=== PATIENT | female | born 1980 | race Caucasian/White ===

== ENCOUNTER 2019-04-14 09:20 | Observation (INO) ==
--- NOTE | 2019-04-14 09:30 | Emergency Department Note ---
Disposition Clinical Impression: Ectopic of ovary Qualifiers: Intrauterine status: without intrauterine Laterality: right Qualified Code(s): O00.201 - Right ovarian without intrauterine Disposition: Admitted As Inpatient Time of Disposition: 11:27 General Adult HPI - General Stated complaint: ECTOPIC Time Seen by Provider: 04/14/19 09:27 Source: patient Mode of arrival: ambulatory Limitations: no limitations Nursing Notes Reviewed: Yes Vital Signs Reviewed: Yes - History of Present Illness HPI Narrative: 38 year old female presents for ectopic . Patient stated she found 4 weeks ago. She started her vagina bleeding 2 days ago. She noticed the bleeding got worse since yesterday associate with lower abdominal pain. She visited [facility] this morning. She had an ultrasound there which noted right ovary ectopic . Patient denied dizziness. She's last period was in December. Onset (ago): day(s) (2) - Related Data Home Medications Medication Instructions Recorded Confirmed Melatonin 5 mg Tablet 10 mg PO HS 04/14/19 04/14/19 Caplet 1 tab PO DAILY 04/14/19 04/14/19 Tylenol 1,000 PO Q6H PRN 04/14/19 Zofran 4 mg PO Q4H PRN 04/14/19 04/14/19 Allergies Allergy/AdvReac Type Severity Reaction Status Date / Time aripiprazole [From Abilify] Allergy Hives Verified 04/13/15 15:58 chlorpromazine Allergy Hives Verified 04/13/15 15:58 [From Thorazine] clozapine [From Clozaril] Allergy Hives Verified 04/13/15 15:58 Penicillins Allergy Hives Verified 04/13/15 15:58 Constitutional: Denies: fever, chills Eyes: Denies: eye pain ENT ED: Denies: ear pain Cardiovascular: Denies: chest pain Respiratory: Denies: cough Gastrointestinal: Reports: abdominal pain. Denies: nausea, vomiting Genitourinary: Denies: urgency Musculoskeletal: Denies: back pain Integumentary: Denies: rash Neurological: Denies: headache Psychiatric: Denies: anxiety Endocrine: Denies: fatigue Hematological/Lymphatic: Denies: easy bleeding Allergic/Immunologic: Denies: facial swelling Past Medical History - Past Medical History Medical history: Reports: diabetes, hyperlipidemia, hypertension Surgical history: Reports: , cholecystectomy, other Psychiatric history: Reports: anxiety, depression BOOM BOSS history: Reports: non-contributory - Social History Smoking Status: Current every day smoker Smokeless Tobacco Status: No Alcohol use: Reports: none Drug use: Reports: none Physical Exam - General Limitations: no limitations General appearance: alert - Head Head exam: atraumatic - Eye Eye exam: Present: normal appearance - ENT ENT exam: normal exam - Neck Neck exam: Present: normal inspection - Chest Chest inspection: Present: normal inspection - Respiratory Respiratory exam: Present: normal lung sounds bilaterally - Cardiovascular Cardiovascular exam: Present: regular rate - Abdominal Exam Abdominal exam: Present: soft, tenderness Abdominal tenderness: Present: RLQ - Extremities Exam Extremities exam: Present: normal inspection, full ROM. Absent: tenderness - Back Exam Back exam: Present: normal inspection, full ROM. Absent: tenderness - Neurological Exam Neurological exam: Present: alert, oriented X3 - Psychiatric Psychiatric exam: Present: normal affect, normal mood - Skin Skin exam: Present: warm, intact Course Vital Signs Temperature 98.2 F 04/14/19 09:31 Pulse Rate 82 04/14/19 09:31 Respiratory Rate 15 04/14/19 09:31 Blood Pressure 131/85 04/14/19 09:31 O2 Sat by Pulse Oximetry 96 04/14/19 09:31 Temperature 98.4 F 04/14/19 13:02 Pulse Rate 63 04/14/19 13:02 Respiratory Rate 20 04/14/19 13:02 Blood Pressure 116/64 04/14/19 13:02 O2 Sat by Pulse Oximetry 94 04/14/19 13:02 Oxygen Delivery Oxygen Delivery Room Air Medical Decision Making - [facility] Narrative Medical decision making narrative: 38 year old female presents with lower abdominal pain and a vagina bleeding. Patient found being 4 weeks ago. She started vagina bleeding 2 days ago. Reported worsening vagina bleeding and lower abdominal pain this morning. Physical exam abdomen soft, right lower quadrant tender to palpation. Patient had ultrasound in [facility] which indicated right ovary ectopic . Patient's vitals are stable. Hemoglobin normal. Dr. Bell came to ER and saw the patient. He decided to admit patient to OR. - Lab Data Lab results reviewed: Yes I reviewed the patient's lab results. Result diagrams: 04/14/19 09:40 04/14/19 09:40 Lab Results 04/14/19 04/14/19 04/14/19 Range/Units 09:30 09:40 09:40 WBC 13.6 H (4.3-11.1) K/mcL RBC 4.23 (3.82-4.97) M/mcL Hgb 12.6 (11.5-15.4) g/dL Hct 38.0 (35.3-44.9) % MCV 89.8 (83.0-100.0) fL MCH 29.8 (28.0-33.3) pg MCHC 33.2 (31.6-35.5) g/dL RDW 14.4 (11.5-14.5) % Plt Count 202 (140-400) K/mcL MPV 10.6 (9.4-12.4) fL Immature Gran % 0.4 (0-4) % Seg Neutrophils % 65.1 % Lymphocytes % 25.3 % Monocytes % 7.5 % Eosinophils % 1.3 % Basophils % 0.4 % Neutrophils # 8.8 (1.6-8.9) K/mcL Lymphocytes # 3.4 (0.6-4.6) K/mcL Monocytes # 1.0 (0.0-1.3) K/mcL Eosinophils # 0.2 (0.0-0.6) K/mcL Basophils # 0.1 (0.0-0.2) K/mcL Sodium 137 (136-145) mEq/L Potassium 4.0 (3.5-5.1) mEq/L Chloride 112 H (98-107) mEq/L Carbon Dioxide 18 L (23-29) mEq/L BUN 6 (6-20) mg/dL Creatinine 0.44 L (0.60-1.20) mg/dL Est GFR ( Amer) > 60 (> 60) Est GFR (Non-Af Amer) > 60 (> 60) BUN/Creatinine Ratio 14 (6-26) Glucose 189 H (70-105) mg/dL Calculated Osmolality 287 (280-300) Calcium 8.5 L (8.6-10.3) mg/dL Total Bilirubin 0.3 (0.3-1.0) mg/dL AST 8 L (13-39) Units/L ALT 14 (7-52) Units/L Alkaline Phosphatase 88 (34-104) Units/L Serum Total Protein 5.7 L (6.4-8.9) g/dL Albumin 3.6 (3.5-5.7) g/dL Globulin 2.1 L (2.4-3.5) g/dL Albumin/Globulin Ratio 1.7 (1.1-2.2) Urine Color Yellow (Yellow) Urine Clarity Clear (Clear) Urine pH 6.0 (5.0-8.0) pH Units Ur Specific [place] 1.018 (1.010-1.025) Urine Protein Negative (Neg-Trace) mg/dL Urine Glucose (UA) >=1000 H (Normal) mg/dL Urine Ketones Negative (Negative) mg/dL Urine Blood Large H (Negative) Urine Nitrite Negative (Negative) Urine Bilirubin Negative (Negative) Urine Urobilinogen Normal (Normal) mg/dL Ur Leukocyte Esterase Negative (Negative) Urine Microscopic RBC 50-100 H (0-3) per hpf Urine Microscopic WBC 0-3 (0-3) per hpf Ur Squamous Epith Cells Many H (None-Few) per lpf Urine Bacteria None Seen (None-Few) per hpf Hyaline Casts None Seen (None-Few) per lpf Ur Culture Indicated? NO (NO) Blood Type 04/14/19 Range/Units 09:40 WBC (4.3-11.1) K/mcL RBC (3.82-4.97) M/mcL Hgb (11.5-15.4) g/dL Hct (35.3-44.9) % MCV (83.0-100.0) fL MCH (28.0-33.3) pg MCHC (31.6-35.5) g/dL RDW (11.5-14.5) % Plt Count (140-400) K/mcL MPV (9.4-12.4) fL Immature Gran % (0-4) % Seg Neutrophils % % Lymphocytes % % Monocytes % % Eosinophils % % Basophils % % Neutrophils # (1.6-8.9) K/mcL Lymphocytes # (0.6-4.6) K/mcL Monocytes # (0.0-1.3) K/mcL Eosinophils # (0.0-0.6) K/mcL Basophils # (0.0-0.2) K/mcL Sodium (136-145) mEq/L Potassium (3.5-5.1) mEq/L Chloride (98-107) mEq/L Carbon Dioxide (23-29) mEq/L BUN (6-20) mg/dL Creatinine (0.60-1.20) mg/dL Est GFR ( Amer) (> 60) Est GFR (Non-Af Amer) (> 60) BUN/Creatinine Ratio (6-26) Glucose (70-105) mg/dL Calculated Osmolality (280-300) Calcium (8.6-10.3) mg/dL Total Bilirubin (0.3-1.0) mg/dL AST (13-39) Units/L ALT (7-52) Units/L Alkaline Phosphatase (34-104) Units/L Serum Total Protein (6.4-8.9) g/dL Albumin (3.5-5.7) g/dL Globulin (2.4-3.5) g/dL Albumin/Globulin Ratio (1.1-2.2) Urine Color (Yellow) Urine Clarity (Clear) Urine pH (5.0-8.0) pH Units Ur Specific [place] (1.010-1.025) Urine Protein (Neg-Trace) mg/dL Urine Glucose (UA) (Normal) mg/dL Urine Ketones (Negative) mg/dL Urine Blood (Negative) Urine Nitrite (Negative) Urine Bilirubin (Negative) Urine Urobilinogen (Normal) mg/dL Ur Leukocyte Esterase (Negative) Urine Microscopic RBC (0-3) per hpf Urine Microscopic WBC (0-3) per hpf Ur Squamous Epith Cells (None-Few) per lpf Urine Bacteria (None-Few) per hpf Hyaline Casts (None-Few) per lpf Ur Culture Indicated? (NO) Blood Type A POSITIVE Attestation Statement - Attestation Attestation: For this encounter, I have reviewed the PAIN MANAGEMENT NURSE or PA documentation, treatment plan, and medical decision making; and I have had face to face time with this patient.
[2019-04-14 09:46] LABS: Bilirubin,Urine Negative (Negative); Blood,Urine Large (Negative); Clarity,Urine Clear (Clear); Color,Urine Yellow (Yellow); Glucose,Urine (UA) >=1000 mg/dL (Normal); Ketones,Urine Negative (Negative); Leukocyte Esterase,Urine Negative (Negative); Nitrite,Urine Negative (Negative); Protein,Urine Negative (Neg-Trace); Specific Gravity,Urine 1.018 (1.010-1.025); Urobilinogen,Urine Normal (Normal)
[2019-04-14 09:48] LABS: Bacteria,Urine None Seen per hpf (None-Few); Hyaline Casts,Urine None Seen per lpf (None-Few); RBC,Urine 50-100 per hpf (0-3); Squamous Epithelial Cell,Urine Many per lpf (None-Few); WBC,Urine 0-3 per hpf (0-3)
[2019-04-14 09:57] LABS: Basophils # 0.1 K/mcL (0.0-0.2); Basophils % 0.4 %; Eosinophils # 0.2 K/mcL (0.0-0.6); Eosinophils % 1.3 %; Hemoglobin 12.6 g/dL (11.5-15.4); Immature Granulocytes % 0.4 % (0-4); Lymphocytes # 3.4 K/mcL (0.6-4.6); Lymphocytes % 25.3 %; Mean Corpuscular HGB Conc 33.2 g/dL (31.6-35.5); Mean Corpuscular Hemoglobin 29.8 pg (28.0-33.3); Mean Corpuscular Volume 89.8 fL (83.0-100.0); Mean Platelet Volume 10.6 fL (9.4-12.4); Monocytes % 7.5 %; Neutrophils # 8.8 K/mcL (1.6-8.9); Platelet Count 202 K/mcL (140-400); Red Blood Count 4.23 M/mcL (3.82-4.97); Red Cell Distribution Width 14.4 % (11.5-14.5); Segmented Neutrophils % 65.1 %; White Blood Count 13.6 K/mcL (4.3-11.1)
[2019-04-14 10:15] LABS: Alanine Aminotransferase 14 Units/L (7-52); Albumin 3.6 g/dL (3.5-5.7); Albumin/Globulin Ratio 1.7 (1.1-2.2); Alkaline Phosphatase 88 Units/L (34-104); Aspartate Amino Transferase 8 Units/L (13-39); BUN/Creatinine Ratio 14 (6-26); Bilirubin,Total 0.3 mg/dL (0.3-1.0); Blood Urea Nitrogen 6 mg/dL (6-20); Calcium 8.5 mg/dL (8.6-10.3); Carbon Dioxide 18 mEq/L (23-29); Chloride 112 mEq/L (98-107); Globulin 2.1 g/dL (2.4-3.5); Glucose 189 mg/dL (70-105); Osmolality,Calculated 287 (280-300); Sodium 137 mEq/L (136-145); Total Protein 5.7 g/dL (6.4-8.9); eGFR For African Americans > 60 (> 60); eGFR For Non-African Americans > 60 (> 60)
--- NOTE | 2019-04-14 11:30 | Emergency Department Note ---
Disposition Clinical Impression: Ectopic of ovary Qualifiers: Intrauterine status: without intrauterine Laterality: right Qualified Code(s): O00.201 - Right ovarian without intrauterine Disposition: Admitted As Inpatient Referrals: Chris Prado MD [Primary Care Provider] - Time of Disposition: 11:32 General Adult HPI - General Chief complaint: ED Vaginal Bleeding Stated complaint: ECTOPIC Time Seen by Provider: 04/14/19 09:27 Source: patient Mode of arrival: ambulatory Limitations: no limitations - History of Present Illness Pain Scale: 8 - Related Data Allergies Allergy/AdvReac Type Severity Reaction Status Date / Time aripiprazole [From Abilify] Allergy Hives Verified 04/13/15 15:58 chlorpromazine Allergy Hives Verified 04/13/15 15:58 [From Thorazine] clozapine [From Clozaril] Allergy Hives Verified 04/13/15 15:58 Penicillins Allergy Hives Verified 04/13/15 15:58 Constitutional: Denies: fever, chills Eyes: Denies: eye pain ENT ED: Denies: ear pain Cardiovascular: Denies: chest pain Respiratory: Denies: cough Gastrointestinal: Reports: abdominal pain. Denies: nausea, vomiting Genitourinary: Denies: urgency Musculoskeletal: Denies: back pain Integumentary: Denies: rash Neurological: Denies: headache Psychiatric: Denies: anxiety Endocrine: Denies: fatigue Hematological/Lymphatic: Denies: easy bleeding Allergic/Immunologic: Denies: facial swelling Past Medical History - Past Medical History Medical history: Reports: diabetes, hyperlipidemia, hypertension Surgical history: Reports: , cholecystectomy, other Psychiatric history: Reports: anxiety, depression FISH PROCESSOR history: Reports: non-contributory : 3 Para: 1 Ab: 1 - Social History Smoking Status: Current every day smoker Smokeless Tobacco Status: No Alcohol use: Reports: none Drug use: Reports: none Physical Exam - General Limitations: no limitations General appearance: alert Course Vital Signs Temperature 98.2 F 04/14/19 09:31 Pulse Rate 82 04/14/19 09:31 Respiratory Rate 15 04/14/19 09:31 Blood Pressure 131/85 04/14/19 09:31 O2 Sat by Pulse Oximetry 96 04/14/19 09:31 Temperature 98.2 F 04/14/19 09:31 Pulse Rate 79 04/14/19 11:20 Respiratory Rate 18 04/14/19 11:20 Blood Pressure 121/99 04/14/19 11:20 O2 Sat by Pulse Oximetry 96 04/14/19 11:20 Oxygen Delivery Oxygen Delivery Room Air Medical Decision Making - Lab Data Result diagrams: 04/14/19 09:40 04/14/19 09:40 Lab Results 04/14/19 04/14/19 04/14/19 Range/Units 09:30 09:40 09:40 WBC 13.6 H (4.3-11.1) K/mcL RBC 4.23 (3.82-4.97) M/mcL Hgb 12.6 (11.5-15.4) g/dL Hct 38.0 (35.3-44.9) % MCV 89.8 (83.0-100.0) fL MCH 29.8 (28.0-33.3) pg MCHC 33.2 (31.6-35.5) g/dL RDW 14.4 (11.5-14.5) % Plt Count 202 (140-400) K/mcL MPV 10.6 (9.4-12.4) fL Immature Gran % 0.4 (0-4) % Seg Neutrophils % 65.1 % Lymphocytes % 25.3 % Monocytes % 7.5 % Eosinophils % 1.3 % Basophils % 0.4 % Neutrophils # 8.8 (1.6-8.9) K/mcL Lymphocytes # 3.4 (0.6-4.6) K/mcL Monocytes # 1.0 (0.0-1.3) K/mcL Eosinophils # 0.2 (0.0-0.6) K/mcL Basophils # 0.1 (0.0-0.2) K/mcL Sodium 137 (136-145) mEq/L Potassium 4.0 (3.5-5.1) mEq/L Chloride 112 H (98-107) mEq/L Carbon Dioxide 18 L (23-29) mEq/L BUN 6 (6-20) mg/dL Creatinine 0.44 L (0.60-1.20) mg/dL Est GFR ( Amer) > 60 (> 60) Est GFR (Non-Af Amer) > 60 (> 60) BUN/Creatinine Ratio 14 (6-26) Glucose 189 H (70-105) mg/dL Calculated Osmolality 287 (280-300) Calcium 8.5 L (8.6-10.3) mg/dL Total Bilirubin 0.3 (0.3-1.0) mg/dL AST 8 L (13-39) Units/L ALT 14 (7-52) Units/L Alkaline Phosphatase 88 (34-104) Units/L Serum Total Protein 5.7 L (6.4-8.9) g/dL Albumin 3.6 (3.5-5.7) g/dL Globulin 2.1 L (2.4-3.5) g/dL Albumin/Globulin Ratio 1.7 (1.1-2.2) Urine Color Yellow (Yellow) Urine Clarity Clear (Clear) Urine pH 6.0 (5.0-8.0) pH Units Ur Specific [place] 1.018 (1.010-1.025) Urine Protein Negative (Neg-Trace) mg/dL Urine Glucose (UA) >=1000 H (Normal) mg/dL Urine Ketones Negative (Negative) mg/dL Urine Blood Large H (Negative) Urine Nitrite Negative (Negative) Urine Bilirubin Negative (Negative) Urine Urobilinogen Normal (Normal) mg/dL Ur Leukocyte Esterase Negative (Negative) Urine Microscopic RBC 50-100 H (0-3) per hpf Urine Microscopic WBC 0-3 (0-3) per hpf Ur Squamous Epith Cells Many H (None-Few) per lpf Urine Bacteria None Seen (None-Few) per hpf Hyaline Casts None Seen (None-Few) per lpf Ur Culture Indicated? NO (NO) Blood Type 04/14/19 Range/Units 09:40 WBC (4.3-11.1) K/mcL RBC (3.82-4.97) M/mcL Hgb (11.5-15.4) g/dL Hct (35.3-44.9) % MCV (83.0-100.0) fL MCH (28.0-33.3) pg MCHC (31.6-35.5) g/dL RDW (11.5-14.5) % Plt Count (140-400) K/mcL MPV (9.4-12.4) fL Immature Gran % (0-4) % Seg Neutrophils % % Lymphocytes % % Monocytes % % Eosinophils % % Basophils % % Neutrophils # (1.6-8.9) K/mcL Lymphocytes # (0.6-4.6) K/mcL Monocytes # (0.0-1.3) K/mcL Eosinophils # (0.0-0.6) K/mcL Basophils # (0.0-0.2) K/mcL Sodium (136-145) mEq/L Potassium (3.5-5.1) mEq/L Chloride (98-107) mEq/L Carbon Dioxide (23-29) mEq/L BUN (6-20) mg/dL Creatinine (0.60-1.20) mg/dL Est GFR ( Amer) (> 60) Est GFR (Non-Af Amer) (> 60) BUN/Creatinine Ratio (6-26) Glucose (70-105) mg/dL Calculated Osmolality (280-300) Calcium (8.6-10.3) mg/dL Total Bilirubin (0.3-1.0) mg/dL AST (13-39) Units/L ALT (7-52) Units/L Alkaline Phosphatase (34-104) Units/L Serum Total Protein (6.4-8.9) g/dL Albumin (3.5-5.7) g/dL Globulin (2.4-3.5) g/dL Albumin/Globulin Ratio (1.1-2.2) Urine Color (Yellow) Urine Clarity (Clear) Urine pH (5.0-8.0) pH Units Ur Specific [place] (1.010-1.025) Urine Protein (Neg-Trace) mg/dL Urine Glucose (UA) (Normal) mg/dL Urine Ketones (Negative) mg/dL Urine Blood (Negative) Urine Nitrite (Negative) Urine Bilirubin (Negative) Urine Urobilinogen (Normal) mg/dL Ur Leukocyte Esterase (Negative) Urine Microscopic RBC (0-3) per hpf Urine Microscopic WBC (0-3) per hpf Ur Squamous Epith Cells (None-Few) per lpf Urine Bacteria (None-Few) per hpf Hyaline Casts (None-Few) per lpf Ur Culture Indicated? (NO) Blood Type A POSITIVE Attestation Statement - Attestation Attestation: For this encounter, I have reviewed the SEMICONDUCTOR LAB TECHNICIAN or PA documentation, treatment plan, and medical decision making; and I have had face to face time with this patient. This is a 38-year-old female who presents from outside hospital due to ultraso und concern for ectopic . The patient has been experiencing right lower quadrant abdominal pain. Per her report she had a clot around 7500. She had an ultrasound there was concern for ectopic . Case was originally seen by the mid-level provider, Tyler Keyes who discussed with FISH PROCESSOR here. I evaluated the patient [id number]. She is still having some mild right lower quadrant abdominal pain. FISH PROCESSOR is present in the room evaluating her for surgical management today. General: Alert, no acute distress HENT: Normocephalic, Atraumatic Neck: No JVD Cardiovascular: Regular rate and rhythm. No appreciable murmurs Respiratory: Lungs CTAB. No wheezing/rhonchi Abdominal: Soft, patient has mild right lower quadrant tenderness. No guarding or rigidity. No peritoneal features. Extremities: No peripheral edema Neuro: Alert, Mentating appropriately, No focal deficits Skin: Warm, Dry Plan: Ultrasound was performed at outside facility. Her report she has a Quant of 7500. FISH PROCESSOR has evaluated the patient and deemed her appropriate for surgical management was able take her to the operating room today. The patient is admitted to the FISH PROCESSOR service.
[2019-04-14] MEDS ORDERED: *HR* HYDROmorphone (PF) 1 MG/ML SYRINGE IVP PRN ×2 (11:33→15:44)
--- NOTE | 2019-04-14 11:39 | OB/GYN History & Physical ---
Date of Encounter: 04/14/19 Time of Encounter: 11:35 Assessment and Plan (1) Ectopic without intrauterine Current visit: Yes Status: Acute 38-year-old 3 para 1 female presents approximately 8 weeks gestation with a quantitative beta hCG is 7500 with acute pelvic pain and surgical abdomen with guarding. Ultrasound shows no viable intrauterine and this showed thickening left fallopian tube as well as bilateral ovarian cyst and moderate free fluid. I did advise patient to the quantitative hCG is 7500 with defecation seen intrauterine . She not had significant bleeding to havw had a spontaneous miscarriage. I discussed with patient options and given her symptomatology and free fluid she is not a candidate for medical or expectant management of this ectopic . I have discussed surgical o ptions as well as surgical risks and she is amenable to proceeding with laparoscopic salpingectomy. I suspect the is most likely on the left side however I have consented for unilateral salpingectomy possible bilateral salpingectomy. Her questions have been answered and she has signed appropriate consent. Will admit to 1 NE. preoperatively with plan to proceed to surgery now or becomes available. Qualifiers: Laterality: unspecified laterality Qualified Code(s): O00.109 - Unspecified tubal without intrauterine (2) Ectopic , tubal Current visit: Yes Status: Acute Qualifiers: Intrauterine status: without intrauterine Laterality: unspecified laterality Qualified Code(s): O00.109 - Unspecified tubal without intrauterine History of Present Illness Chief complaint: ectopic HPI: Ms. Irvin is a 38 year old female [id number] presents in transfer from [facility] with suspected ectopic . Reports last menstrual period was approximately 8 weeks ago and she had a positive test about 4 weeks ago. She started having spotting 3 days ago and then awoke at 3 AM with doubling over pain so presented to the emergency room. At the Emergency room she is found to be in significant pain with a quantitative beta hCG of 7500. She did have pelvic ultrasound and I spoke directly with the radiologist felt he states she has no obvious intrauterine and no gestational or yolk sac with an endometrial stripe of 12 mm. Does have a 3 cm cyst on the right ovary with simple in nature and 2 smaller complex cyst on her left ovary and possible thickening within the left fallopian tube. There is a moderate amount of free fluid. Because of these findings she was transferred to [facility] for further evaluation and management. Upon arrival here her vital signs are stable she does appear uncomfortable. Hemoglobin is 12.2. Past Med Surg Social Fam HX - Past Medical History Source: patient Medical history: diabetes, hyperlipidemia, hypertension Additional medical history: hx of drug abuse Psychiatric history: anxiety, depression - Past Surgical History Surgical History: , cholecystectomy, other Additional surgical history: TBI - Social History Smoking Status: Current every day smoker Smokeless Tobacco Status: No Alcohol use: none Drug use: none Obstetrical History - Pregnancies : 3 Para: 1 Ab's: 1 Livin - History/Complications History/Complications: Has history of 1 prior spontaneous miscarriage at 9 weeks and now an ectopic . Medications and Allergies Allergy/AdvReac Type Severity Reaction Status Date / Time aripiprazole [From Abilify] Allergy Hives Verified 04/13/15 15:58 chlorpromazine Allergy Hives Verified 04/13/15 15:58 [From Thorazine] clozapine [From Clozaril] Allergy Hives Verified 04/13/15 15:58 Penicillins Allergy Hives Verified 04/13/15 15:58 Exam - Vital Signs Vital signs: Initial Vital Signs Temp Pulse Resp BP Pulse Ox 98.2 F 82 15 131/85 96 04/14/19 09:31 04/14/19 09:31 04/14/19 09:31 04/14/19 09:31 04/14/19 09:31 - Constitutional Constitutional: well developed, well nourished - HEENT HEENT: EOMI, PERRL - Neck Neck exam: full ROM - Lungs Respiratory exam: CTAB - Cardiovascular Cardiovascular exam: RRR - Abdomen Abdomen: Present: guarding noted Abdomen detail: right lower quadrant: tenderness, left upper quadrant: tenderness - Extremities Extremities exam: full ROM - Uterus Uterus exam: Present: tender - Comments Comments: Minimal bleeding noted Results Result Diagrams: 04/14/19 09:40 04/14/19 09:40 Abnormal lab results WBC 13.6 K/mcL (4.3-11.1) H 04/14/19 09:40 Chloride 112 mEq/L (98-107) H 04/14/19 09:40 Carbon Dioxide 18 mEq/L (23-29) L 04/14/19 09:40 Creatinine 0.44 mg/dL (0.60-1.20) L 04/14/19 09:40 Glucose 189 mg/dL (70-105) H 04/14/19 09:40 Calcium 8.5 mg/dL (8.6-10.3) L 04/14/19 09:40 AST 8 Units/L (13-39) L 04/14/19 09:40 Serum Total Protein 5.7 g/dL (6.4-8.9) L 04/14/19 09:40 Globulin 2.1 g/dL (2.4-3.5) L 04/14/19 09:40 Urine Glucose (UA) >=1000 mg/dL (Normal) H 04/14/19 09:30 Urine Blood Large (Negative) H 04/14/19 09:30 Urine Microscopic RBC 50-100 per hpf (0-3) H 04/14/19 09:30 Ur Squamous Epith Cells Many per lpf (None-Few) H 04/14/19 09:30 All other labs normal.
--- NOTE | 2019-04-14 15:32 | Anesthesia Evaluation PreOp ---
Date of Encounter: 04/14/19 Time of Encounter: 15:26 - Past History Planned Operation: Ectopic/Laparoscopic Cardiac History: HTN, Hyperlipidemia Pulmonary History: Smoker CAREER SERVICES OFFICER History: Other (TBI @ 4 y/o - no problems since, Anxiety/Depression) Other Medical History: Diabetes Type II Anesthesia History: No Prior Anesthetic Complications, Past Anesthesia (c- section, cholecystectomy) : Yes (Ectopic ) Alcohol Use: none Drug use: none Medications and Allergies Melatonin 5 mg Tablet 10 mg PO HS 04/14/19 [History] Caplet 1 tab PO DAILY 04/14/19 [History] Tylenol 1,000 PO Q6H PRN 04/14/19 [History] Zofran 4 mg PO Q4H PRN 04/14/19 [History] Allergy/AdvReac Type Severity Reaction Status Date / Time aripiprazole [From Abilify] Allergy Hives Verified 04/13/15 15:58 chlorpromazine Allergy Hives Verified 04/13/15 15:58 [From Thorazine] clozapine [From Clozaril] Allergy Hives Verified 04/13/15 15:58 Penicillins Allergy Hives Verified 04/13/15 15:58 - Meds/Allergy Pre-op Review Medications Reviewed: Yes Allergies Reviewed: Yes Beta Blockers on Current Med List: No Anesthesia Results - Labs 04/14/19 09:40 04/14/19 09:40 Laboratory Tests 02/24/18 04/09/19 09:17 15:47 Hemoglobin A1c 8.5 H Beta HCG, Quant 3417 H Anesthesia Exam Vital Signs/O2 Sat, Most Current Temp Pulse Resp BP Pulse Ox 98.4 F 63 20 116/64 94 04/14/19 13:02 04/14/19 13:02 04/14/19 13:02 04/14/19 13:02 04/14/19 13:02 Blood glucose: 189 NPO (# of Hours): > 8 Hrs Pain Scale: 0 Pain Scale Used: Numeric (1 - 10) - HEENT Pupil (Motor): Pupils equal, EOMI Mallampati: I Teeth: Normal - CAREER SERVICES OFFICER LOC: Oriented CAREER SERVICES OFFICER Motor: Normal RUE, Normal LUE, Normal RLE, Normal LLE, Normal Face CAREER SERVICES OFFICER Sensory: Normal: RUE, LUE, RLE, LLE, Face - Cardiac Rhythm: Regular Murmur: None JVD: No Carotid Bruit: No - Pulmonary Breath Sounds: bilateral Clear Respiratory Effort: Symmetrical Anesthesia Assess/Plan ASA Score: 2 Level of consciousness: Cooperative Anesthetic Plan: General Autologous Blood: Yes Monitoring Plan: Standard Monitors Recovery Plan: PACU
[2019-04-14] MEDS ORDERED: Albuterol 2.5 MG/3 ML NEBULIZER IH ONE (15:35)
[2019-04-14] MEDS ORDERED: Albuterol 2.5 MG/3 ML NEBULIZER ONE (15:37)
[2019-04-14] MEDS ORDERED: Ondansetron 4 MG/2 ML VIAL IVP ONE (15:44)
[2019-04-14] MEDS ORDERED: *HR* OxyCODONE Immed Rel 5 MG TABLET PO PRN (15:44)
[2019-04-14] MEDS ORDERED: *HR* Promethazine 25 MG/ML VIAL IVP PRN (15:44)
[2019-04-14] MEDS ORDERED: Bupivacaine/EPI 1:200k 0.25%PF 10 ML VIAL INFILT ONE (15:48)
[2019-04-14] MEDS ORDERED: Dexamethasone 4 MG/ML VIAL ONE (17:06)
[2019-04-14] MEDS ORDERED: *HR* Propofol 200 MG/20 ML VIAL IVP ONE (17:06)
[2019-04-14] MEDS ORDERED: *HR* Succinylcholine 200 MG/10 ML VIAL IVP ONE (17:06)
[2019-04-14] MEDS ORDERED: Lidocaine -MPF 2% 2 ML VIAL ONE (17:06)
[2019-04-14] MEDS ORDERED: Ondansetron 4 MG/2 ML VIAL ONE (17:06)
[2019-04-14] MEDS ORDERED: *HR* Rocuronium Bromide 50 MG/5 ML VIAL ONE ×2 (17:06→19:18)
[2019-04-14] MEDS ORDERED: *HR* FentaNYL (PF) 100 MCG/2 ML VIAL ONE ×2 (17:06)
[2019-04-14] MEDS ORDERED: *HR* Midazolam HCl 2 MG/2 ML VIAL ONE (17:06)
[2019-04-14] MEDS ORDERED: Clindamycin 900 MG/50 ML 900 MG/50 ML IV.SOLN IVPB ONE (17:10)
[2019-04-14] MEDS ORDERED: Neostigmine Methylsulfate 3 MG/3 ML SYRINGE ONE (17:32)
--- NOTE | 2019-04-14 20:37 | Operative Note ---
Date of procedure: 04/14/19 Pre-op diagnosis: Bladder injury Post-op diagnosis: same Procedure: Laparoscopic cystorrhaphy, extensive lysis of pelvic and omental adhesions, cystoscopy Implants: None Complications: None Anesthesia: GETA Surgeon: Zachariah Klein Was there an assistant import manager present: No Estimated blood loss (cc): 20 Specimen: None Condition: stable Disposition: other (Return to the care of Dr. Lobato for completion of her primary surgical procedure) Procedure in Detail: I received an after hours call for urgent intraoperative consultation regarding bladder injury during MARKETING LEAD procedure. I arrived to the operating theater and reviewed the details of the case with the primary surgeon, Dr. Flip Lobato. The patient sustained a bladder injury during low abdominal laparoscopic port placement (a part of routine configuration to address the patient's ruptured ectopic ). The port in question went through the anterior bladder and exited into the field of view through the posterior bladder. As we reviewed the intraoperative anatomy on the monitor, the suspected anterior bladder injury could not be appreciated as it was behind the peritoneum. I scrubbed into the case and performed a cystoscopy. Cystoscopy revealed 2 injuries/perforations of the bladder the largest being at the anterior bladder toward the dome slightly right of midline and the second being immediately posterior. Simultaneous monitors were used for cystoscopy as well as laparoscopy. Laparoscopic view from above revealed bladder irrigant exiting the posterior bladder entry as it was intraperitoneal. The anterior bladder injury was extraperitoneal and could not be seen laparoscopically. Given the size of the bladder injuries a decision was made for laparoscopic sutured repair. I ended cystoscopic portion of procedure and entered the laparoscopic field above after re-sterilizing. The bladder had to be mobilized to reach the largest defect being the anterior bladder injury. The bladder was significantly adhesed to the omentum and anterior abdominal wall. These adhesions fixed the entire anterior surface of the bladder to the anterior abdominal wall much higher then its normal anatomic location. This was a cause for inadvertent trocar injury during placement of a trocar in the normal low abdominal position. As we began mobilizing the bladder it was clear that these adhesions were quite dense and socked in. This required sharp dissection into dense fibrous adhesion fixing the bladder to the omentum, and omentum to the anterior abdominal wall. This extended time procedure by at least 50%. Once the bladder was dropped from the anterior abdominal wall by dissection freeing the midline and right aspect of the bladder, the anterior abdominal bladder injury was identified. Using intracorporeal freehand suturing, the defect was closed with a running 2-0 Vicryl suture. Bladder irrigation was performed and showed no extravasation from this site. Attention was turned to the posterior bladder injury which was at the intraperitoneal site. This was also sewn in a running fashion using intracorporeal freehand suturing by a pure laparoscopic technique. The tight space and utilization of existing MARKETING LEAD port configuration was not ideal for bladder repair, but utilizing the existing MARKETING LEAD port placement minimized the morbidity associated with reconfiguration of port placement for bladder reconstruction. This significantly creased the level difficulty of the case. Intracorporeal freehand suturing via sure laparoscopic technique, in a space with limited mobility required tertiary care referral lev technical expertise. Once both cystotomies had been closed. The bladder was again filled and found to be watertight. Given the watertightness of the repair, drainage was deemed mandatory. At this point I turned the patient's care back over to Dr. Lobato, who was present and assisted for the entire urologic portion of the case. A Saldaña catheter will be left in place for 10-14 days. This ended the urologic portion of the procedure.
[2019-04-14] MEDS ORDERED: Acetaminophen IV 1,000 MG/100 ML INFUS..BTL ONE (20:56)
--- NOTE | 2019-04-14 21:48 | OB/GYN Procedure Note ---
Laparoscopy Procedure - Diagnosis Date of procedure: 04/14/19 Pre-op diagnosis: ectopic Post-op diagnosis: same, pelvic adhesive disease - Procedure Laparoscopy procedure: operative laparoscopy, left ovarian cystotomy(ies), lysis of pelvic adhesions, other (Right salpingectomy, incidental cystotomy with repair by Dr. Klein) Surgeon: Flip Lobato Was there an family practice physician assistant present: Yes Coal Passer: Noemi Luu Anesthesia Type: General Estimated blood loss (cc): 250 Complications: none Specimens: ovarian cyst wall, other (Right fallopian tube with ectopic ) Findings: Dense omental adhesions in between the upper abdomen abdominal wall, to hemorrhagic cyst on left ovary measuring approximately 3 cm in the right ampullary ectopic , adhesions between the bladder and the lower abdominal wall Disposition: PACU Narrative: Patient's 38-year-old female presented emergency room with probable ectopic with quantitative hCG of 7500 lower pelvic pain vaginal bleeding and ultrasound suggestive of ectopic. Discussed with patient options she did desire definitive surgical management she signed appropriate consent. Description procedure: Patient was taken operating room where general anesthesia was administered. She was prepped draped in usual sterile fashion bladder was drained of clear urine. Cervix is visualized and grasped with single-tooth tenaculum. Commodore uterine manipulators placed in the cervix. Scalpel was used to make a 5 mm incision below the umbilicus from a blunt trocar was introduced at difficulty. There were dense omental adhesions I did place a 12 mm trocar in the midline above the previous section incision. This is placed under direct visualization without apparent difficulty. Another 5 mm trochars placed right lower quadrant. I did use monopolar scissors to take down the omental adhesions I did have to place another 5 mm trocar in the left upper quadrant to help with dissection. The left fallopian tube did have 2 adjacent enlarged hemorrhagic ovarian cysts measuring approximately 3 cm. The Cyst swain these were transected and the cyst drained the cyst swain removed. Uterus was normal right ovary was enlarged to have some hemorrhage with partially ruptured in the ampullary ectopic . LigaSure was taken across the cornual section of the right fallopian tube and then across the mesosalpinx. Right fallopian tube and cyst wall were placed in Endo Catch bag and removed. Thorough irrigation was performed hemostasis was ensured. When the Endo Catch bag was removed the young Schuster. I did notice a glistening appearance above the peritoneum at the 12 mm trocar site I did place the laparoscope into the 12 mm trocar site and noted that I had entered a hollow cavity. Saldaña catheter was placed and did show that I had entered the bladder inadvertently during placement of the catheter. Again the abdominal wall did not appear thickened in this area and the been impossible to tell that the bladder was drawn up in this area. I did consult Dr. Zachariah Klein from urology who did recommend he did agree that the bladder was surprisingly high up on the lower abdominal wall. This point Dr. Klein did take over the procedure and did repair the anterior and posterior bladder swain with interrupted sutures laparoscopically. Please see his portion of the dictation to see his part of the surgery. Once the bladder was closed and found to be watertight the pneumoperitoneum was released trochars removed the fascia at the 12 mm site was closed with 0 Vicryl suture skin edges reapproximated with 4-0 Vicryl and skin glue. All sponge counts counts are correct patient was taken recovery in good condition.
[2019-04-14] MEDS ORDERED: Ondansetron 4 MG/2 ML VIAL IVP PRN (21:59)
[2019-04-14] MEDS ORDERED: Ringers Solution, Lactated 1,000 ML IVC SCH (21:59)
[2019-04-14] MEDS ORDERED: Naloxone 0.4 MG/ML INJ IVP PRN (21:59)
[2019-04-14] MEDS: *HR* HYDROcodone/Acet 5/325 mg TABLET PO PRN (22:31)
--- NOTE | 2019-04-14 22:38 | Anesthesia Evaluation Post Op ---
Date of Encounter: 04/14/19 Time of Encounter: 22:33 - Vital Signs Vital Signs: Vital Signs/O2 Sat, Most Current Temp Pulse Resp BP Pulse Ox 98.6 F 85 18 112/66 94 04/14/19 22:00 04/14/19 22:00 04/14/19 22:00 04/14/19 22:00 04/14/19 22:00 - Lungs Lungs: Clear Ascult./Percussion - Airway Airway: Non-obstructed - Cardiovascular Regular Rate - Mental Status Mental Status: Alert & Oriented, Answers Appropriately - Pain Pain Scale used: Numeric (1 - 10) (tolerable) - Nausea Vomiting Nausea Vomiting: Not Present - Hydration Hydration: Ice chips, Saldaña catheter - Discharge PostOp Status: Transfer Patient to floor
[2019-04-14] MEDS ORDERED: *HR* Dextrose 50 % in Water (Syg) 50 ML SYRINGE IVP PRN (22:43)
[2019-04-14] MEDS ORDERED: Dextrose Gel 15 GM/37.5 ML TUBE PO PRN ×2 (22:43)
[2019-04-14] MEDS ORDERED: D5% in Water 1,000 ML IVC PRN (22:43)
[2019-04-14] MEDS ORDERED: Insulin LISPRO 300 UNITS/3 ML VIAL SQ ONE (23:24)
[2019-04-15] MEDS: *HR* HYDROcodone/Acet 5/325 mg TABLET PO PRN ×3 (02:30→13:59)
[2019-04-15 05:49] LABS: Basophils % 0.2 %; Hematocrit 36.4 % (35.3-44.9); Hemoglobin 11.8 g/dL (11.5-15.4); Immature Granulocytes % 0.8 % (0-4); Lymphocytes % 9.7 %; Mean Corpuscular HGB Conc 32.4 g/dL (31.6-35.5); Mean Corpuscular Hemoglobin 30.2 pg (28.0-33.3); Mean Corpuscular Volume 93.1 fL (83.0-100.0); Mean Platelet Volume 10.7 fL (9.4-12.4); Monocytes # 1.3 K/mcL (0.0-1.3); Monocytes % 6.3 %; Neutrophils # 17.5 K/mcL (1.6-8.9); Platelet Count 191 K/mcL (140-400); Red Blood Count 3.91 M/mcL (3.82-4.97); Red Cell Distribution Width 14.6 % (11.5-14.5)
[2019-04-15 05:50] LABS: Lymphocytes # 2.1 K/mcL (0.6-4.6); White Blood Count 21.1 K/mcL (4.3-11.1)
--- NOTE | 2019-04-15 06:55 | Discharge Summary ---
Date of Encounter: 04/15/19 Time of Encounter: 06:56 - Discharge Diagnosis (1) Ectopic without intrauterine Priority: Primary Status: Acute Comments: Doing much better, will likely d/c home today. Qualifiers: Laterality: unspecified laterality Qualified Code(s): O00.109 - Unspecified tubal without intrauterine (2) Ectopic , tubal Priority: Primary Status: Acute Qualifiers: Intrauterine status: without intrauterine Laterality: unspecified laterality Qualified Code(s): O00.109 - Unspecified tubal without intrauterine (3) Cystostomy status Priority: Secondary Status: Acute Comments: Pt with incidental cystostomy repaired by Dr. Klein. Will need prolonged catheter. Dr. Klein has accepted management of catheter removal. - Discharge Medications Prescriptions: New Nitrofurantoin [Macrodantin] 100 mg PO HS #10 capsule HYDROcodone/Acet 5/325 mg [Embudo 5-325 mg] 1 tab PO Q6H PRN 7 Days #20 tablet PRN Reason: Moderate Pain (4-6) No Action Melatonin 5 mg Tablet 10 mg PO HS Tylenol 1,000 PO Q6H PRN PRN Reason: Pain Caplet 1 tab PO DAILY Zofran 4 mg PO Q4H PRN PRN Reason: Nausea Home Medications: Melatonin 5 mg Tablet 10 mg PO HS 04/14/19 [History] Caplet 1 tab PO DAILY 04/14/19 [History] Tylenol 1,000 PO Q6H PRN 04/14/19 [History] Zofran 4 mg PO Q4H PRN 04/14/19 [History] HYDROcodone/Acet 5/325 mg [Embudo 5-325 mg] 1 tab PO Q6H PRN 7 Days #20 tablet 04/15/19 [Rx] Nitrofurantoin [Macrodantin] 100 mg PO HS #10 capsule 04/15/19 [Rx] Allergies/Adverse Reactions: Allergy/AdvReac Type Severity Reaction Status Date / Time aripiprazole [From Abilify] Allergy Hives Verified 04/13/15 15:58 chlorpromazine Allergy Hives Verified 04/13/15 15:58 [From Thorazine] clozapine [From Clozaril] Allergy Hives Verified 04/13/15 15:58 Penicillins Allergy Hives Verified 04/13/15 15:58 Data Procedures and tests throughout hospitalization: Laboratory Tests 04/14/19 04/14/19 04/14/19 09:30 09:40 09:40 WBC 13.6 H RBC 4.23 Hgb 12.6 Hct 38.0 MCV 89.8 MCH 29.8 MCHC 33.2 RDW 14.4 Plt Count 202 MPV 10.6 Immature Gran % 0.4 Seg Neutrophils % 65.1 Lymphocytes % 25.3 Monocytes % 7.5 Eosinophils % 1.3 Basophils % 0.4 Neutrophils # 8.8 Lymphocytes # 3.4 Monocytes # 1.0 Eosinophils # 0.2 Basophils # 0.1 Sodium 137 Potassium 4.0 Chloride 112 H Carbon Dioxide 18 L BUN 6 Creatinine 0.44 L Est GFR ( Amer) > 60 Est GFR (Non-Af Amer) > 60 BUN/Creatinine Ratio 14 Glucose 189 H POC Glucose Calculated Osmolality 287 Calcium 8.5 L Total Bilirubin 0.3 AST 8 L ALT 14 Alkaline Phosphatase 88 Serum Total Protein 5.7 L Albumin 3.6 Globulin 2.1 L Albumin/Globulin Ratio 1.7 Urine Color Yellow Urine Clarity Clear Urine pH 6.0 Ur Specific Josephine 1.018 Urine Protein Negative Urine Glucose (UA) >=1000 H Urine Ketones Negative Urine Blood Large H Urine Nitrite Negative Urine Bilirubin Negative Urine Urobilinogen Normal Ur Leukocyte Esterase Negative Urine Microscopic RBC 50-100 H Urine Microscopic WBC 0-3 Ur Squamous Epith Cells Many H Urine Bacteria None Seen Hyaline Casts None Seen Ur Culture Indicated? NO Blood Type 04/14/19 04/14/19 04/15/19 09:40 22:38 05:22 WBC 21.1 H D RBC 3.91 Hgb 11.8 Hct 36.4 MCV 93.1 MCH 30.2 MCHC 32.4 RDW 14.6 H Plt Count 191 MPV 10.7 Immature Gran % 0.8 Seg Neutrophils % 83.0 Lymphocytes % 9.7 Monocytes % 6.3 Eosinophils % 0.0 Basophils % 0.2 Neutrophils # 17.5 H Lymphocytes # 2.1 Monocytes # 1.3 Eosinophils # 0.0 Basophils # 0.0 Sodium Potassium Chloride Carbon Dioxide BUN Creatinine Est GFR ( Amer) Est GFR (Non-Af Amer) BUN/Creatinine Ratio Glucose POC Glucose 209 H Calculated Osmolality Calcium Total Bilirubin AST ALT Alkaline Phosphatase Serum Total Protein Albumin Globulin Albumin/Globulin Ratio Urine Color Urine Clarity Urine pH Ur Specific Josephine Urine Protein Urine Glucose (UA) Urine Ketones Urine Blood Urine Nitrite Urine Bilirubin Urine Urobilinogen Ur Leukocyte Esterase Urine Microscopic RBC Urine Microscopic WBC Ur Squamous Epith Cells Urine Bacteria Hyaline Casts Ur Culture Indicated? Blood Type A POSITIVE Labs on day of discharge: Labs from last 24 hours 04/15/19 04/14/19 04/14/19 05:22 22:38 09:40 WBC 21.1 H D RBC 3.91 Hgb 11.8 Hct 36.4 MCV 93.1 MCH 30.2 MCHC 32.4 RDW 14.6 H Plt Count 191 MPV 10.7 Immature Gran % 0.8 Seg Neutrophils % 83.0 Lymphocytes % 9.7 Monocytes % 6.3 Eosinophils % 0.0 Basophils % 0.2 Neutrophils # 17.5 H Lymphocytes # 2.1 Monocytes # 1.3 Eosinophils # 0.0 Basophils # 0.0 Sodium Potassium Chloride Carbon Dioxide BUN Creatinine Est GFR ( Amer) Est GFR (Non-Af Amer) BUN/Creatinine Ratio Glucose POC Glucose 209 H Calculated Osmolality Calcium Total Bilirubin AST ALT Alkaline Phosphatase Serum Total Protein Albumin Globulin Albumin/Globulin Ratio Urine Color Urine Clarity Urine pH Ur Specific Josephine Urine Protein Urine Glucose (UA) Urine Ketones Urine Blood Urine Nitrite Urine Bilirubin Urine Urobilinogen Ur Leukocyte Esterase Urine Microscopic RBC Urine Microscopic WBC Ur Squamous Epith Cells Urine Bacteria Hyaline Casts Ur Culture Indicated? Blood Type A POSITIVE 04/14/19 04/14/19 04/14/19 09:40 09:40 09:30 WBC 13.6 H RBC 4.23 Hgb 12.6 Hct 38.0 MCV 89.8 MCH 29.8 MCHC 33.2 RDW 14.4 Plt Count 202 MPV 10.6 Immature Gran % 0.4 Seg Neutrophils % 65.1 Lymphocytes % 25.3 Monocytes % 7.5 Eosinophils % 1.3 Basophils % 0.4 Neutrophils # 8.8 Lymphocytes # 3.4 Monocytes # 1.0 Eosinophils # 0.2 Basophils # 0.1 Sodium 137 Potassium 4.0 Chloride 112 H Carbon Dioxide 18 L BUN 6 Creatinine 0.44 L Est GFR ( Amer) > 60 Est GFR (Non-Af Amer) > 60 BUN/Creatinine Ratio 14 Glucose 189 H POC Glucose Calculated Osmolality 287 Calcium 8.5 L Total Bilirubin 0.3 AST 8 L ALT 14 Alkaline Phosphatase 88 Serum Total Protein 5.7 L Albumin 3.6 Globulin 2.1 L Albumin/Globulin Ratio 1.7 Urine Color Yellow Urine Clarity Clear Urine pH 6.0 Ur Specific Josephine 1.018 Urine Protein Negative Urine Glucose (UA) >=1000 H Urine Ketones Negative Urine Blood Large H Urine Nitrite Negative Urine Bilirubin Negative Urine Urobilinogen Normal Ur Leukocyte Esterase Negative Urine Microscopic RBC 50-100 H Urine Microscopic WBC 0-3 Ur Squamous Epith Cells Many H Urine Bacteria None Seen Hyaline Casts None Seen Ur Culture Indicated? NO Blood Type - Impressions Doing well this morning, fair pain control. Pt is hungry. Hasn't ambulated yet. Date of admission: 04/14/19 11:51 Primary care physician: Chris Prado MD Consults: 04/15/19 06:40 Consult to Urology [CONS] Routine Consulting Provider: [facility] Reason for Consult: intraoperative cystotomy, repaired by Dr. Klein Call Completed: Yes - Patient Status Disposition: Home, Self-Care Condition: Good Functional capacity at discharge: independent ambulation Overall status at discharge: patient is progressing back to baseline - Discharge Instructions Follow Up With: Flip Lobato MD [Partnered Physician] - Forms: ED Satisfaction Letter - Diet and Activity Activity: increase activity as tolerated Diet: advance to your usual diet Hospital Course PROCUREMENT INTERN Time Attestation: Total time spent providing and/or coordinating discharge services: Exam - Constitutional Vitals: Temp Pulse Resp BP Pulse Ox 98.0 F 80 16 106/67 96 04/15/19 04:24 04/15/19 04:24 04/15/19 04:24 04/15/19 04:24 04/15/19 04:24 General appearance IM: A&O X 3 - Respiratory Respiratory exam: Present: CTAB - Cardiovascular Cardiovascular exam IM: Present: RRR - GI/Abdominal GI/Abdominal exam IM: normal bowel sounds Incision: normal, intact - Extremities Exam Extremities exam IM: Present: full ROM - Neurological Exam Neurological exam: oriented X3 - Other Additional findings: Excellent urine output which is clear. - VTE Documentation of Mechanical Device: Intermittent pneumatic compression device
[2019-04-15] MEDS ORDERED: Insulin LISPRO 300 UNITS/3 ML VIAL SQ SCH (07:30)
[2019-04-15 08:05] VITALS: BP 115/75
[2019-04-15] MEDS ORDERED: Insulin LISPRO 300 UNITS/3 ML VIAL SQ ONE (23:11)
== END 2019-04-15 15:56 | disposition home or self-care (01) ==
LOC: EMEROOARM 09:20 → 1NENUPED 09:20
PROVIDERS: ADMIT Obstetrics & Gynecology; ATTEND Obstetrics & Gynecology

== ENCOUNTER 2019-09-16 15:19 | Observation (INO) ==
[2019-09-16] MEDS ORDERED: cefTRIAXone 1,000 MG in Water for inj. (sterile) 10 ML IVP ONE (15:50)
[2019-09-16] MEDS ORDERED: Azithromycin 500 MG in 0.9 % Sodium Chloride 250 ML IVPB ONE (15:50)
[2019-09-16] MEDS ORDERED: 0.9 % Sodium Chloride 1,000 ML IVC ONE (15:50)
[2019-09-16] MEDS ORDERED: Ibuprofen 400 MG TABLET PO ONE (16:33)
[2019-09-16] MEDS ORDERED: Ipratropium/Albuterol Neb 3 ML IH ONE (16:34)
[2019-09-16] MEDS ORDERED: predniSONE 20 MG TABLET PO ONE (16:37)
[2019-09-16 16:55] LABS: Basophils % 0.4 %; Eosinophils % 0.3 %; Hematocrit 41.4 % (35.3-44.9); Hemoglobin 13.4 g/dL (11.5-15.4); Immature Granulocytes % 0.7 % (0-4); Lymphocytes # 1.5 K/mcL (0.6-4.6); Lymphocytes % 21.1 %; Mean Corpuscular HGB Conc 32.4 g/dL (31.6-35.5); Mean Corpuscular Hemoglobin 28.5 pg (28.0-33.3); Mean Corpuscular Volume 87.9 fL (83.0-100.0); Mean Platelet Volume 10.7 fL (9.4-12.4); Monocytes # 0.6 K/mcL (0.0-1.3); Monocytes % 9.1 %; Neutrophils # 4.7 K/mcL (1.6-8.9); Platelet Count 198 K/mcL (140-400); Red Blood Count 4.71 M/mcL (3.82-4.97); Segmented Neutrophils % 68.4 %; White Blood Count 6.9 K/mcL (4.3-11.1)
[2019-09-16 17:15] LABS: Alanine Aminotransferase 16 Units/L (7-52); Albumin 3.6 g/dL (3.5-5.7); Albumin/Globulin Ratio 1.4 (1.1-2.2); Alkaline Phosphatase 110 Units/L (34-104); Aspartate Amino Transferase 13 Units/L (13-39); BUN/Creatinine Ratio 18 (6-26); Bilirubin,Indirect 0.2 mg/dL (0.0-1.0); Bilirubin,Total 0.2 mg/dL (0.3-1.0); Blood Urea Nitrogen 10 mg/dL (6-20); Calcium 8.4 mg/dL (8.6-10.3); Carbon Dioxide 23 mEq/L (23-29); Chloride 102 mEq/L (98-107); Globulin 2.6 g/dL (2.4-3.5); Glucose 323 mg/dL (70-105); Magnesium 1.6 mg/dL (1.6-2.6); Osmolality,Calculated 288 (280-300); Phosphorous 2.9 mg/dL (2.7-4.5); Potassium 3.8 mEq/L (3.5-5.1); Sodium 133 mEq/L (136-145); Total Protein 6.2 g/dL (6.4-8.9); Troponin I < 0.03 ng/mL (< 0.04); eGFR For African Americans > 60 (> 60); eGFR For Non-African Americans > 60 (> 60)
[2019-09-16 17:17] LABS: Bilirubin,Urine Negative (Negative); Blood,Urine Negative (Negative); Clarity,Urine Clear (Clear); Color,Urine Yellow (Yellow); Glucose,Urine (UA) >=1000 mg/dL (Normal); Ketones,Urine Negative (Negative); Leukocyte Esterase,Urine Negative (Negative); Nitrite,Urine Negative (Negative); PH,Urine 6.5 pH Units (5.0-8.0); Protein,Urine Negative (Neg-Trace); Specific Gravity,Urine 1.023 (1.010-1.025); Urobilinogen,Urine Normal (Normal)
[2019-09-16] MEDS ORDERED: Nicotine 14 MG PATCH.TD24 TD PRN (19:36)
[2019-09-16] MEDS ORDERED: Ondansetron 4 MG/2 ML VIAL IVP PRN (19:36)
[2019-09-16] MEDS ORDERED: Naloxone 0.4 MG/ML INJ IVP PRN (19:36)
[2019-09-16] MEDS ORDERED: *HR* Dextrose 50 % in Water (Syg) 50 ML SYRINGE IVP PRN (19:44)
[2019-09-16] MEDS ORDERED: Dextrose Gel 15 GM/37.5 ML TUBE PO PRN ×2 (19:44)
[2019-09-16] MEDS ORDERED: D5% in Water 1,000 ML IVC PRN (19:44)
[2019-09-16] MEDS ORDERED: 0.9 % Sodium Chloride 1,000 ML IVC SCH (19:45)
[2019-09-16 19:53] LABS: Estimated Average Glucose 292 mg/dl
[2019-09-16] MEDS ORDERED: Insulin LISPRO 300 UNITS/3 ML VIAL SQ SCH (20:00)
[2019-09-16] MEDS ORDERED: Insulin DETEMIR 100 UNIT/ML X5UNITS SQ SCH (21:00)
[2019-09-16] MEDS: Ipratropium/Albuterol Neb 3 ML IH SCH (22:00)
[2019-09-16] MEDS: *HR* Heparin 5,000 UNIT/ML VIAL SQ SCH (22:55)
[2019-09-17] MEDS ORDERED: MethylPREDNISolone 40 MG/ML VIAL IVP SCH
[2019-09-17] MEDS: Insulin LISPRO 300 UNITS/3 ML VIAL SQ SCH ×4 (01:15→07:03)
[2019-09-17] MEDS: Ipratropium/Albuterol Neb 3 ML IH SCH ×2 (04:08→10:14)
[2019-09-17] MEDS ORDERED: Acetaminophen IV 1,000 MG/100 ML INFUS..BTL IVPB ONE (05:07)
[2019-09-17] MEDS: *HR* Heparin 5,000 UNIT/ML VIAL SQ SCH (05:10)
[2019-09-17 05:37] LABS: Hematocrit 40.2 % (35.3-44.9); Hemoglobin 12.9 g/dL (11.5-15.4); Mean Corpuscular HGB Conc 32.1 g/dL (31.6-35.5); Mean Corpuscular Hemoglobin 28.7 pg (28.0-33.3); Mean Corpuscular Volume 89.3 fL (83.0-100.0); Mean Platelet Volume 10.4 fL (9.4-12.4); Platelet Count 188 K/mcL (140-400); Red Cell Distribution Width 16.2 % (11.5-14.5); White Blood Count 5.7 K/mcL (4.3-11.1)
[2019-09-17 05:43] LABS: BUN/Creatinine Ratio 23 (6-26); Blood Urea Nitrogen 10 mg/dL (6-20); Calcium 8.6 mg/dL (8.6-10.3); Carbon Dioxide 22 mEq/L (23-29); Chloride 107 mEq/L (98-107); Glucose 196 mg/dL (70-105); Osmolality,Calculated 290 (280-300); Potassium 4.3 mEq/L (3.5-5.1); Sodium 138 mEq/L (136-145); eGFR For African Americans > 60 (> 60); eGFR For Non-African Americans > 60 (> 60)
[2019-09-17] MEDS ORDERED: cefTRIAXone 1,000 MG in Water for inj. (sterile) 10 ML IVP SCH (09:00)
[2019-09-17] MEDS ORDERED: predniSONE 20 MG TABLET PO SCH (09:00)
[2019-09-17] MEDS ORDERED: Ibuprofen 600 MG TABLET PO ONE (10:26)
[2019-09-17] MEDS ORDERED: Insulin LISPRO 300 UNITS/3 ML VIAL SQ SCH ×2 (11:30→21:00)
[2019-09-17 11:49] VITALS: BP 126/80
[2019-09-17] MEDS ORDERED: TOPIRAMATE PO SCH (13:15)
[2019-09-17] MEDS ORDERED: OXcarbazepine 150 MG TABLET PO SCH (15:00)
[2019-09-17] MEDS ORDERED: Azithromycin 500 MG in 0.9 % Sodium Chloride 250 ML IVPB SCH (16:00)
[2019-09-17] MEDS ORDERED: *HR* Metformin 500 MG TABLET PO SCH (17:00)
[2019-09-17] MEDS ORDERED: risperiDONE 1 MG TABLET PO SCH (21:00)
[2019-09-17] MEDS ORDERED: lamoTRIgine 100 MG TABLET PO SCH (21:00)
[2019-09-17] MEDS ORDERED: RISPERIDONE 2 MG PO SCH (21:00)
== END 2019-09-17 15:35 | disposition home or self-care (01) ==
LOC: EMEROOARM 15:19 → 2ANU 15:19
PROVIDERS: ADMIT Internal Medicine; ATTEND Internal Medicine